=== PATIENT | male | born 1955 | race Caucasian/White ===

== ENCOUNTER → 2025-10-05 14:22 | Outpatient (REF) | payer OTHER, SELFPAY ==
[2025-10-05 15:18] LABS: Hematocrit 51.7 % (39.0-52.0); Hemoglobin 17.4 g/dL (13.0-18.0); Mean Corp Hgb Conc. 33.7 g/dL (33.0-37.0); Mean Corpuscular Volume 94.5 fL (80.0-94.0); Nucleated Red Blood Cells % 0 % (-); Platelet Count 274 10^3/uL (130-400); Red Cell Dist. Width 12.5 % (11.5-14.5)
[2025-10-05 15:31] LABS: ALT (SGPT) 16 U/L (0-50); AST (SGOT) 17 U/L (17-59); Albumin 4.2 g/dl (3.5-5.0); Alkaline Phosphatase 75 U/L (38-126); Blood Urea Nitrogen 12 mg/dl (9-20); Calcium 9.4 mg/dl (8.4-10.2); Carbon Dioxide 29 mmol/L (22-30); Chloride 103 mmol/L (98-107); Glucose 98 mg/dl (70-99); Potassium 4.4 mmol/L (3.5-5.1); Sodium 138 mmol/L (135-145); Total Protein 6.9 g/dl (6.3-8.2)
[2025-10-05 15:41] LABS: eGFR > 60.00
== END ==
LOC: REG 14:22
PROVIDERS: ATTENDING PHYSICIAN Physician Assistant
DX: Z01.818 Encounter for other preprocedural examination (principal); C44.212 Basal cell carcinoma of skin of right ear and external auricular canal
CPT/HCPCS: 36415; 80053; 85025; 93005